=== PATIENT | female | born 1995 | race Caucasian/White ===

== ENCOUNTER 2024-06-20 15:15 | Emergency (ER) | payer BC ==
[2024-06-20 15:30] VITALS: BP 128/80; PULSE 79; RESP 16; TEMP 97.7; BMI 26.5
[2024-06-20] MEDS ORDERED: MAG HYDROX/AL HYDROX/SIMETH 30 ML UNIT-DOSE CUP ONE (16:11)
[2024-06-20] MEDS ORDERED: ONDANSETRON *ODT* 4 MG TABLET ONE (16:11)
[2024-06-20] MEDS ORDERED: FAMOTIDINE 20 MG TABLET ONE (16:11)
[2024-06-20] MEDS: MAG HYDROX/AL HYDROX/SIMETH -MYLANTA- ORAL SUSPENSION PO ONE (16:19)
[2024-06-20] MEDS: ONDANSETRON *ODT* 4 MG TABLET SL ONE (16:19)
[2024-06-20] MEDS ORDERED: FAMOTIDINE 20 MG/50 ML IVPB 20 MG/50 ML MG IVPB ONE (16:59)
[2024-06-20] MEDS ORDERED: ACETAMINOPHEN INJECTION 100 ML ONE (16:59)
[2024-06-20] MEDS ORDERED: ONDANSETRON 4 MG/2 ML VIAL ONE (16:59)
[2024-06-20 17:04] LABS: HEMATOCRIT 35.4 % (32.4-45.2); HEMOGLOBIN 12.3 GM/dL (10.7-15.3); MCH 30.4 pg (25.7-33.7); MCHC 34.8 g/dl (32.0-36.0); MEAN CELL VOLUME 87.5 fl (80-96); MEAN PLT VOLUME 9.1 fl (7.5-11.1); PLATELET COUNT 215 10^3/uL (134-434); RBC 4.05 M/mm3 (3.60-5.2); RDW 13.1 % (11.6-15.6); WHITE BLOOD COUNT 9.2 K/mm3 (4.0-10.0)
[2024-06-20] MEDS: FAMOTIDINE 20 MG/50 ML IVPB 20 MG/50 ML MG IVPB ONE ×2 (17:07→17:08)
[2024-06-20] MEDS: SODIUM CHLORIDE 0.9% 1000 ML INFUS.BAG IV ONE (17:07)
[2024-06-20] MEDS: ONDANSETRON 4 MG/2 ML VIAL IVPUSH ONE (17:08)
[2024-06-20 17:29] LABS: CALCIUM 9.5 mg/dL (8.5-10.1)
[2024-06-20 17:30] LABS: ALBUMIN 4.1 g/dl (3.4-5.0); BLOOD UREA NITROGEN 10.4 mg/dL (7-18)
[2024-06-20] MEDS: ACETAMINOPHEN 1000 MG/100 ML BAG IVPB ONE (17:30)
[2024-06-20 17:33] LABS: BILIRUBIN,TOTAL 0.6 mg/dL (0.2-1); CREATININE 0.8 mg/dL (0.55-1.3)
[2024-06-20 17:34] LABS: TOT PROT 7.5 g/dl (6.4-8.2)
== END 2024-06-20 20:35 | disposition home or self-care (01) ==
LOC: JER 15:15
PROC: 3E033GC Introduction of Other Therapeutic Substance into Peripheral Vein, Percutaneous Approach (ICD-10-PCS; principal; 2024-06-20)
PROC: 3E033GC Introduction of Other Therapeutic Substance into Peripheral Vein, Percutaneous Approach (ICD-10-PCS; 2024-06-20)
PROC: 3E033NZ Introduction of Analgesics, Hypnotics, Sedatives into Peripheral Vein, Percutaneous Approach (ICD-10-PCS; 2024-06-20)
DX: R10.13 Epigastric pain (principal); R11.2 Nausea with vomiting, unspecified; K80.20 Calculus of gallbladder without cholecystitis without obstruction; R10.11 Right upper quadrant pain
CPT/HCPCS: 36415; 76705-TC; 80053; 83690; 84703; 85027; 99284-25; J0131; Q0162

== ENCOUNTER 2024-06-25 18:00 | Inpatient (IN) | payer BC ==
[2024-06-25 18:10] VITALS: BMI 26.5
[2024-06-25] MEDS ORDERED: ACETAMINOPHEN INJECTION 100 ML ONE (19:07)
[2024-06-25] MEDS ORDERED: ONDANSETRON 4 MG/2 ML VIAL ONE (19:07)
[2024-06-25] MEDS ORDERED: morphine SULFATE 4 MG/ML VIAL ONE (19:07)
[2024-06-25] MEDS: morphine CARPU-JECT 4 MG/1 ML DISP.SYRIN IVPUSH ONE (19:10)
[2024-06-25] MEDS: ONDANSETRON 4 MG/2 ML VIAL IVPUSH ONE (19:10)
[2024-06-25] MEDS: SODIUM CHLORIDE 0.9% 1000 ML INFUS.BAG IV ONE (19:10)
[2024-06-25] MEDS: ACETAMINOPHEN 1000 MG/100 ML BAG IVPB ONE (19:10)
[2024-06-25 19:28] LABS: EPI CELLS 36 /uL (0-25.1); HYALINE CASTS 0 /uL (0-3.1); URINE APPEARANCE CLEAR; URINE BACTERIA 378 /uL (0-1359); URINE BILIRUBIN NEGATIVE (NEGATIVE); URINE COLOR YELLOW; URINE GLUCOSE (UA) NEGATIVE (NEGATIVE); URINE KETONE 2+ (NEGATIVE); URINE LEUK ESTERASE TRACE (NEGATIVE); URINE NITRITE NEGATIVE (NEGATIVE); URINE PROTEIN NEGATIVE (NEGATIVE); URINE RBC 32 /uL (0-23.9); URINE UROBILINOGEN 0.2 mg/dL (0.2-1.0); URINE WBC 21 /uL (0-25.8)
[2024-06-25 19:29] LABS: BASO % 0.9 % (0-2.0); HEMATOCRIT 41.4 % (32.4-45.2); HEMOGLOBIN 13.9 GM/dL (10.7-15.3); LYMPH % 25.3 % (8-40); MCH 29.9 pg (25.7-33.7); MCHC 33.7 g/dl (32.0-36.0); MEAN CELL VOLUME 88.6 fl (80-96); MEAN PLT VOLUME 10.4 fl (7.5-11.1); MONO % 6.2 % (3.8-10.2); NEUT % 65.6 % (42.8-82.8); PLATELET COUNT 286 10^3/uL (134-434); RBC 4.67 M/mm3 (3.60-5.2); RDW 12.9 % (11.6-15.6); WHITE BLOOD COUNT 10.1 K/mm3 (4.0-10.0)
[2024-06-25 19:42] LABS: INR 1.11 (0.83-1.09); PROTHROMBIN TIME (PATIENT) 12.5 SEC (9.7-13.0)
[2024-06-25 19:45] LABS: ACTIVATED PTT 30.6 SECONDS (25.2-36.5)
[2024-06-25 19:57] LABS: POTASSIUM 5.4 mmol/L (3.5-5.1)
[2024-06-25 19:59] LABS: ALBUMIN 4.3 g/dl (3.4-5.0); CALCIUM 10.1 mg/dL (8.5-10.1)
[2024-06-25 20:00] LABS: BLOOD UREA NITROGEN 9.4 mg/dL (7-18)
[2024-06-25 20:03] LABS: CREATININE 0.8 mg/dL (0.55-1.3)
[2024-06-25 20:04] LABS: BILIRUBIN,TOTAL 0.6 mg/dL (0.2-1); TOT PROT 8.5 g/dl (6.4-8.2)
[2024-06-25] MEDS ORDERED: ACETAMINOPHEN 1000 MG/100 ML BAG IVPB PRN (20:27)
[2024-06-25] MEDS ORDERED: ONDANSETRON 4 MG/2 ML VIAL IVPUSH PRN (20:28)
[2024-06-25] MEDS ORDERED: KETOROLAC TROMETHAMINE 30 MG/1 ML VIAL ONE (21:40)
[2024-06-25] MEDS ORDERED: METOCLOPRAMIDE HCL INJECTION 10 MG/2 ML VIAL ONE (21:40)
[2024-06-25] MEDS: SODIUM CHLORIDE 1,000 ML IV SCH (21:53)
[2024-06-25] MEDS: METOCLOPRAMIDE HCL INJECTION 10 MG/2 ML VIAL IVPB ONE (21:53)
[2024-06-25] MEDS: KETOROLAC TROMETHAMINE 30 MG/1 ML VIAL IVPUSH ONE (21:53)
[2024-06-26 10:20] LABS: BASO % 0.8 % (0-2.0); EOS % 4.8 % (0-4.5); HEMATOCRIT 35.1 % (32.4-45.2); HEMOGLOBIN 11.8 GM/dL (10.7-15.3); LYMPH % 23.3 % (8-40); MCH 29.9 pg (25.7-33.7); MCHC 33.5 g/dl (32.0-36.0); MEAN CELL VOLUME 89.3 fl (80-96); MEAN PLT VOLUME 10.4 fl (7.5-11.1); MONO % 8.6 % (3.8-10.2); NEUT % 62.5 % (42.8-82.8); PLATELET COUNT 187 10^3/uL (134-434); RBC 3.94 M/mm3 (3.60-5.2); WHITE BLOOD COUNT 5.6 K/mm3 (4.0-10.0)
[2024-06-26 10:26] LABS: POTASSIUM 4.5 mmol/L (3.5-5.1)
[2024-06-26 10:32] LABS: BLOOD UREA NITROGEN 8.1 mg/dL (7-18)
[2024-06-26 10:33] LABS: CALCIUM 8.9 mg/dL (8.5-10.1); MAGNESIUM 1.9 mg/dL (1.8-2.4)
[2024-06-26 10:35] LABS: CREATININE 0.6 mg/dL (0.55-1.3)
[2024-06-26 10:36] LABS: PHOSPHOROUS 2.6 mg/dL (2.5-4.9)
[2024-06-26 10:37] LABS: BILIRUBIN,TOTAL 0.8 mg/dL (0.2-1)
[2024-06-26 10:52] LABS: ALBUMIN 3.2 g/dl (3.4-5.0); TOT PROT 6.1 g/dl (6.4-8.2)
[2024-06-26] MEDS ORDERED: cefOXitin SODIUM 2 GM VIAL (RESTRICTED TO ID) IVPB ONE (14:04)
[2024-06-26] MEDS ORDERED: oxyCODONE HCL 5 MG TABLET PO PRN ×3 (14:22→16:44)
[2024-06-26] MEDS ORDERED: ONDANSETRON 4 MG/2 ML VIAL IVPUSH PRN ×3 (14:22→16:44)
[2024-06-26] MEDS ORDERED: LACTATED RINGERS SOLUTION 1,000 ML IV SCH (14:30)
[2024-06-26] MEDS ORDERED: PROPOFOL 20 ML ONE (14:34)
[2024-06-26] MEDS ORDERED: MIDAZOLAM HCL 2 MG/2 ML SINGLE DOSE VIAL ONE (14:35)
[2024-06-26] MEDS ORDERED: LIDOCAINE HCL/PF 2% SDV 5ML VIAL ONE (14:35)
[2024-06-26] MEDS ORDERED: ONDANSETRON 4 MG/2 ML VIAL ONE (14:35)
[2024-06-26] MEDS ORDERED: ROCURONIUM BROMIDE 50 MG/5 ML SYRINGE ONE (14:35)
[2024-06-26] MEDS ORDERED: DEXAMETHASONE SOD PHOSPHATE 4 MG/1 ML VIAL ONE (14:35)
[2024-06-26] MEDS ORDERED: SEVOFLURANE 250 ML BTL ONE (14:36)
[2024-06-26] MEDS: cefOXitin SODIUM 2 GM VIAL (RESTRICTED TO ID) IVPB ONE ×2 (15:32)
[2024-06-26] MEDS ORDERED: ACETAMINOPHEN INJECTION 100 ML ONE (15:33)
[2024-06-26] MEDS: BUPIVACAINE HCL/PF 0.25% (2.5MG/ML) 10 ML VIAL IJ ONE ×2 (15:37)
[2024-06-26] MEDS ORDERED: KETOROLAC TROMETHAMINE 30 MG/1 ML VIAL ONE (15:41)
[2024-06-26] MEDS ORDERED: NEOSTIGMINE METHYLSULFATE 0.5 MG/1 ML - 10 ML MDV ONE (15:47)
[2024-06-26] MEDS ORDERED: GLYCOPYRROLATE 0.2 MG/1 ML VIAL ONE (15:47)
[2024-06-26] MEDS: SODIUM CHLORIDE 1,000 ML IV SCH (17:39)
[2024-06-26] MEDS: LACTATED RINGERS SOLUTION 1,000 ML IV SCH (17:45)
[2024-06-26] MEDS: oxyCODONE HCL 5 MG TABLET PO PRN (19:38)
[2024-06-26] MEDS: ACETAMINOPHEN 1000 MG/100 ML BAG IVPB SCH (21:37)
[2024-06-26] MEDS: KETOROLAC TROMETHAMINE 30 MG/1 ML VIAL IVPUSH SCH (21:37)
[2024-06-27 09:11] LABS: BASO % 0.4 % (0-2.0); EOS % 0.2 % (0-4.5); HEMOGLOBIN 11.3 GM/dL (10.7-15.3); LYMPH % 14.4 % (8-40); MCH 29.8 pg (25.7-33.7); MCHC 33.3 g/dl (32.0-36.0); MEAN CELL VOLUME 89.3 fl (80-96); MEAN PLT VOLUME 10.5 fl (7.5-11.1); MONO % 6.8 % (3.8-10.2); NEUT % 78.2 % (42.8-82.8); PLATELET COUNT 213 10^3/uL (134-434); RDW 13.1 % (11.6-15.6); WHITE BLOOD COUNT 10.4 K/mm3 (4.0-10.0)
[2024-06-27 09:16] VITALS: RESP 20
[2024-06-27 09:28] LABS: POTASSIUM 4.3 mmol/L (3.5-5.1)
[2024-06-27 09:30] LABS: CALCIUM 8.9 mg/dL (8.5-10.1)
[2024-06-27 09:31] LABS: ALBUMIN 3.1 g/dl (3.4-5.0); BLOOD UREA NITROGEN 4.8 mg/dL (7-18); MAGNESIUM 1.7 mg/dL (1.8-2.4)
[2024-06-27 09:34] LABS: CREATININE 0.6 mg/dL (0.55-1.3)
[2024-06-27 09:35] LABS: BILIRUBIN,TOTAL 0.6 mg/dL (0.2-1)
[2024-06-27 09:36] LABS: TOT PROT 5.9 g/dl (6.4-8.2)
[2024-06-27 13:43] VITALS: BP 117/71; PULSE 94; TEMP 98.2
== END 2024-06-27 14:15 | disposition home or self-care (01) | DRG 419 ==
LOC: JER 18:00 → JERBED 19:59 → J8W 06-26 00:53
PROVIDERS: ADMIT Internal Medicine; ATTEND Nurse Practitioner Acute Care
PROC: 0FT44ZZ Resection of Gallbladder, Percutaneous Endoscopic Approach (ICD-10-PCS; principal; 2024-06-26 16:00)
DX: K80.00 Calculus of gallbladder with acute cholecystitis without obstruction (principal); K29.70 Gastritis, unspecified, without bleeding
CPT/HCPCS: 36415; 76705-TC; 80053; 81003; 83690; 83735; 84100; 84703; 85025; 85610; 85730; 88304-TC; 93005; 93010; 94760; 99285-25; J0131